=== PATIENT | male | born 1965 | race African-American/Black ===

== ENCOUNTER 2023-05-29 23:21 | Inpatient (IN) ==
[2023-05-29] MEDS: Midazolam 5 mg/5 ml VIAL 1 mg/ml 5 ml VIAL (5 mg) ONE (23:42)
[2023-05-29] MEDS: Haloperidol 5 mg/ml SDV IV/IM 5 MG/ML AMP IM ONE (23:42)
[2023-05-30 02:30] LABS: ABS Basophils 0.1 10^3/uL (0.0-0.1); ABS Lymphocytes 1.2 10^3/uL (1.0-4.8); ABS Monocytes 0.6 10^3/uL (0.0-1.1); ABS Neutrophils 10.1 10^3/uL (1.5-7.6); ABS Nucleated RBC 0.01 10^3/ul; Eosinophil % 0.1 %; Hematocrit 45.8 % (38-53); Hemoglobin 15.2 g/dL (13.2-16.3); Lymphocyte % 10.1 %; Mean Corpuscular Hgb Conc 33.1 g/dL (31-36); Mean Corpuscular Volume 81.5 fL (80-97); Mean Platelet Volume 7.6 fL (7.5-11.2); Nucleated Red Blood Cells % 0.1 %/100WBC (0.0-0.8); Platelet Count 231 10^3/uL (150-450); Red Blood Count 5.62 10^6/uL (4.06-5.63); Red Cell Distribution Width 14.5 % (12-17)
[2023-05-30 02:47] LABS: ALT 48 U/L (7-52); AST 80 U/L (13-39); Albumin 5.1 g/dL (3.2-5.2); Albumin/Globulin Ratio 1.4 (1-3); Alkaline Phosphatase 67 U/L (35-149); Anion Gap 16 mmol/L (2-16); Blood Urea Nitrogen 27 mg/dL (6-24); CO2 Carbon Dioxide 21 mmol/L (22-32); Calcium 10.3 mg/dL (8.6-10.3); Chloride 100 mmol/L (101-111); Creatinine, Serum 2.59 mg/dL (0.67-1.17); Globulin 3.6 g/dL (2-4); Glucose 71 mg/dL (70-100); Potassium 4.8 mmol/L (3.5-5.0); Sodium 137 mmol/L (135-145); Total Bilirubin 0.9 mg/dL (0.2-1.0); Total Protein 8.7 g/dL (6.4-8.9); eGFR CKD-EPI 28.4 (>60)
[2023-05-30 04:30] LABS: Acetaminophen < 15 mcg/mL; Alcohol, S < 13 mg/dL (<13); Salicylate < 2.50 mg/dL (<30)
[2023-05-30] MEDS: Lactated Ringers 1000 ml BAG 1,000 ML IV ONE ×4 (04:34→11:30)
[2023-05-30 04:48] LABS: TSH Ultra Thyroid Stim Horm 2.55 mcIU/mL (0.34-5.60)
[2023-05-30 04:51] LABS: Creatine Kinase 3952 U/L (10-223)
[2023-05-30 08:58] LABS: Calcium 9.2 mg/dL (8.6-10.3); Creatinine, Serum 1.76 mg/dL (0.67-1.17); Potassium 4.2 mmol/L (3.5-5.0); eGFR CKD-EPI 45.1 (>60)
[2023-05-30 08:59] LABS: Albumin 4.3 g/dL (3.2-5.2); Albumin/Globulin Ratio 1.5 (1-3); Globulin 2.9 g/dL (2-4); Total Bilirubin 0.9 mg/dL (0.2-1.0); Total Protein 7.2 g/dL (6.4-8.9)
[2023-05-30 08:59] LABS: Urine Benzodiazepine Screen Presumptive Positive (None Detect); Urine Cannabinoids Screen None Detected (None Detect); Urine Opiates Screen None Detected (None Detect)
[2023-05-30 11:25] LABS: Calcium 8.6 mg/dL (8.6-10.3); Creatinine, Serum 1.61 mg/dL (0.67-1.17); Potassium 3.7 mmol/L (3.5-5.0); eGFR CKD-EPI 50.2 (>60)
[2023-05-30 11:33] LABS: Albumin 3.9 g/dL (3.2-5.2); Albumin/Globulin Ratio 1.5 (1-3); Globulin 2.6 g/dL (2-4); Total Bilirubin 0.8 mg/dL (0.2-1.0); Total Protein 6.5 g/dL (6.4-8.9)
[2023-05-30] MEDS ORDERED: Lorazepam PYXIS KEY PRN (12:28)
[2023-05-30] MEDS: LORazepam 2 mg VIAL 1 ml IV PUSH ONE (12:40)
[2023-05-30 13:38] LABS: Calcium 8.5 mg/dL (8.6-10.3); Creatinine, Serum 1.64 mg/dL (0.67-1.17); Potassium 3.8 mmol/L (3.5-5.0); eGFR CKD-EPI 49.1 (>60)
[2023-05-30] MEDS ORDERED: LORazepam 2 mg VIAL 1 ml IV PUSH SCH (17:00)
[2023-05-30] MEDS: Lactated Ringers 1000 ml BAG 1,000 ML IV SCH (22:16)
[2023-05-30] MEDS: Thiamine 100 MG/ML 2 ml VIAL (200 mg) IM ONE (22:28)
[2023-05-30] MEDS: Enoxaparin 40 MG/0.4 ML SYR SUBCUT SCH (23:36)
[2023-05-31 00:30] LABS: Urine Appearance Clear; Urine Bilirubin Negative (Negative); Urine Blood Negative (Negative); Urine Color Light-Yellow; Urine Glucose Negative (Negative); Urine Ketones Negative (Negative); Urine Nitrite Negative (Negative); Urine Protein Negative (Negative); Urine Specific Gravity 1.016 (1.002-1.030); Urine Urobilinogen 1+ (Negative)
[2023-05-31 06:28] LABS: ABS Eosinophils 0.1 10^3/uL (0.0-0.5); ABS Lymphocytes 2.9 10^3/uL (1.0-4.8); ABS Monocytes 0.5 10^3/uL (0.0-1.1); ABS Neutrophils 3.5 10^3/uL (1.5-7.6); ABS Nucleated RBC 0.01 10^3/ul; Eosinophil % 1.7 %; Hematocrit 38.2 % (38-53); Hemoglobin 12.8 g/dL (13.2-16.3); Lymphocyte % 40.5 %; Mean Corpuscular Hemoglobin 27.5 pg (27-33); Mean Corpuscular Hgb Conc 33.6 g/dL (31-36); Mean Corpuscular Volume 81.9 fL (80-97); Mean Platelet Volume 8.1 fL (7.5-11.2); Nucleated Red Blood Cells % 0.1 %/100WBC (0.0-0.8); Platelet Count 204 10^3/uL (150-450); Red Blood Count 4.67 10^6/uL (4.06-5.63); Red Cell Distribution Width 14.5 % (12-17); White Blood Count 7.1 10^3/uL (3.6-10.2)
[2023-05-31 06:56] LABS: Calcium 8.5 mg/dL (8.6-10.3); Creatinine, Serum 1.33 mg/dL (0.67-1.17); Potassium 3.8 mmol/L (3.5-5.0); eGFR CKD-EPI 63.1 (>60)
[2023-05-31] MEDS: Multivitamins/Minerals TAB PO SCH (10:04)
[2023-06-01 05:51] LABS: ABS Eosinophils 0.2 10^3/uL (0.0-0.5); ABS Lymphocytes 2.5 10^3/uL (1.0-4.8); ABS Monocytes 0.4 10^3/uL (0.0-1.1); ABS Neutrophils 2.5 10^3/uL (1.5-7.6); Hematocrit 35.6 % (38-53); Hemoglobin 11.8 g/dL (13.2-16.3); Lymphocyte % 44.5 %; Mean Corpuscular Hemoglobin 27.2 pg (27-33); Mean Corpuscular Hgb Conc 33.1 g/dL (31-36); Mean Corpuscular Volume 82.3 fL (80-97); Nucleated Red Blood Cells % 0.1 %/100WBC (0.0-0.8); Platelet Count 192 10^3/uL (150-450); Red Blood Count 4.32 10^6/uL (4.06-5.63); Red Cell Distribution Width 14.2 % (12-17); White Blood Count 5.6 10^3/uL (3.6-10.2)
[2023-06-01 06:08] LABS: Calcium 8.4 mg/dL (8.6-10.3); Creatinine, Serum 0.99 mg/dL (0.67-1.17); Potassium 3.6 mmol/L (3.5-5.0)
[2023-06-01 06:10] LABS: Magnesium 1.6 mg/dL (1.9-2.7)
[2023-06-01] MEDS: Potassium Chlor 20 meq TAB.ER PO ONE (08:16)
[2023-06-01] MEDS: Magnesium Sulfate 2 gm BAG 2 GM/50 ML BAG IVPB ONE (08:16)
[2023-06-01] MEDS: Magnesium Sulfate IV 1GM/100ML 1 GM/100 ML BAG IV ONE (10:46)
[2023-06-01 11:24] LABS: Albumin 3.5 g/dL (3.2-5.2); Albumin/Globulin Ratio 1.3 (1-3); Direct Bilirubin 0.1 mg/dL (0.03-0.18); Globulin 2.6 g/dL (2-4); Indirect Bilirubin 0.2 mg/dL (0.3-1.0); Total Bilirubin 0.3 mg/dL (0.2-1.0); Total Protein 6.1 g/dL (6.4-8.9)
[2023-06-02] MEDS ORDERED: Buprenorp/Nalox 8-2 MG SL TAB SL SCH (09:00)
[2023-06-02] MEDS: Buprenorp/Nalox 8-2 MG SL TAB SL SCH (10:09)
[2023-06-03 08:16] LABS: Albumin 3.8 g/dL (3.2-5.2); Albumin/Globulin Ratio 1.5 (1-3); Creatinine, Serum 1.09 mg/dL (0.67-1.17); Globulin 2.5 g/dL (2-4); HDL Cholesterol 55.8 mg/dL; Potassium 4.2 mmol/L (3.5-5.0); Total Bilirubin 0.4 mg/dL (0.2-1.0); Total Protein 6.3 g/dL (6.4-8.9); eGFR CKD-EPI 80.2 (>60)
[2023-06-05] MEDS: Influenza vaccine *QUAD* *2023-24* 0.5 ML SYRINGE IM ONE (07:55)
[2023-06-05 09:04] VITALS: BP 121/76
== END 2023-06-05 08:40 | DRG 774 ==
LOC: ED 23:21 → EDHOLD 23:21 → OBSVTOIN 05-30 15:17 → SUATTDRO 05-30 15:17 → MEDTELE 05-30 19:41 → BSU 05-30 22:28
PROVIDERS: ADMIT Hospitalist; ATTEND Psychiatry & Neurology Psychiatry